=== PATIENT | female | born 2000 | race Asian ===

== ENCOUNTER 2019-08-31 13:10 | Outpatient (CLI) | payer OTHER ==
[2019-08-31 14:15] VITALS: BP 109/58
[2019-08-31] MEDS ORDERED: LACTATED RINGERS 1,000 ML IV SCH (15:00)
[2019-08-31 15:44] LABS: Bacteria,Urine 1+ /HPF (Negative); Bilirubin,Urine NEG (Negative); Blood,Urine NEG (Negative); Color,Urine Yellow (Yellow); Mucus,Urine FEW /HPF; Protein,Urine <15 mg/dL mg/dL (Negative); Urobilinogen,Urine < 2.0 mg/dL (<2.0)
== END 2019-08-31 15:30 | disposition home or self-care (01) ==
LOC: TRG 13:10
PROVIDERS: ATTEND Obstetrics & Gynecology
DX: O47.03 False labor before 37 completed weeks of gestation, third trimester (principal); Z3A.34 34 weeks gestation of pregnancy
CPT/HCPCS: 81001; 87086

== ENCOUNTER 2019-09-21 00:03 | Observation (INO) | payer OTHER ==
[2019-09-21] MEDS ORDERED: LACTATED RINGERS 1,000 ML ONE (00:45)
[2019-09-21] MEDS ORDERED: LACTATED RINGERS 1,000 ML IV SCH (00:58)
[2019-09-21] MEDS ORDERED: BUTORPHANOL 2 MG/1 ML INJ ONE (02:09)
[2019-09-21] MEDS ORDERED: BUTORPHANOL 2 MG/1 ML INJ IV ONE (02:22)
[2019-09-21 08:05] VITALS: BP 114/59
== END 2019-09-21 11:51 | disposition home or self-care (01) ==
LOC: TRG 00:03 → LD 00:34 → TRG 00:34
PROVIDERS: ADMIT Obstetrics & Gynecology; ATTEND Obstetrics & Gynecology
DX: O62.9 Abnormality of forces of labor, unspecified (principal); Z3A.37 37 weeks gestation of pregnancy; Z98.891 History of uterine scar from previous surgery
CPT/HCPCS: G0378; J0595; J7120